=== PATIENT | male | born 1955 | race Caucasian/White ===

== ENCOUNTER 2023-03-14 17:55 | Outpatient (CLI) | payer MEDICARE, MEDICAID | END 2023-03-14 17:56 | disposition critical access hospital (66) | LOC: EMS 17:55 | DX: S01.01XA Laceration without foreign body of scalp, initial encounter (principal); W11.XXXA Fall on and from ladder, initial encounter; Y92.009 Unspecified place in unspecified non-institutional (private) residence as the place of occurrence of the external cause | CPT/HCPCS: A0425; A0429 ==

== ENCOUNTER 2023-03-14 18:08 | Emergency (ER) | payer MEDICARE, MEDICAID ==
--- NOTE | 2023-03-14 18:17 | ED Physician Documentation ---
History of Present Illness - Stated complaint Stated Complaint: FALL - Additonal information Additional information: 68-year-old male presents to the emergency department as a modified trauma. Reportedly late this afternoon he was working on a ladder from about 6 feet up when his foot got trapped and he fell off the ladder directly onto hard pavement. He did strike with his head. Witnesses on scene report that he lost consciousness for about 15 seconds. He subsequently woke up was able to get up on his own and sat in a chair while EMS was summoned. Per bystanders there was no activity to suggest seizure. He presents nonfocal. He does have a large hematoma/abrasion to his posterior occiput. He has a remote history of spinal fusion at the upper lumbar area. He is denying back pain neck pain, hip arm or leg pain. Review of Systems Constitutional: denies: Fever Cardiac: reports: Reviewed and negative Respiratory: reports: Reviewed and negative : reports: Reviewed and negative Skin: reports: Reviewed and negative Musculoskeletal: denies: Neck pain, Back pain, Extremity pain, Joint pain Neurologic: reports: Head injury, LOC. denies: Syncope, Seizure PD PAST MEDICAL HISTORY - Present Medications Home Medications: Ambulatory Orders Medication Instructions Recorded Confirmed HYDROcod/ACETAM 5/325 [Onley 5/325] 1 tablet PO BID PRN #10 tablet 03/14/23 - Allergies Allergies/Adverse Reactions: Allergies Allergy/AdvReac Type Severity Reaction Status Date / Time No Known Drug Allergies Allergy Verified 03/14/23 18:16 PD ED PE EXPANDED - General General: Alert, No acute distress, Other (Rigid cervical collar in place.) - HEENT HEENT: PERRL, Other (Negative for raccoon eyes, regan sign or hemotympanum). No: Head injury (Large hematoma abrasion on the posterior occiput.) - Cardiac Cardiac: Regular Rate, Radial strong equal, Pedal strong equal, Cap refill < 2 sec. No: Murmur Present - Respiratory Respiratory: Clear to ausultation lety. No: Distress, Labored - Abdomen Abdomen: Normal Bowel sounds. No: Tender to palpation - Back Back: No: Vertebral tenderness (No tenderness elicited with palpation of the thoracic or lumbar spine. No abrasions are noted. well healed midline spinal incision), Soft tissue tenderness - Derm Derm: Abrasion (s), Bruising (Posterior occiput) - Neuro Neuro: Alert and Oriented X 3, CNII-XII intact, Normal speech - GCS Eye Opening: Spontaneous Motor: Obeys Commands Verbal: Oriented Total: 15 Results - Vitals Vitals: Vital Signs - 24 hr 03/14/23 18:14 Temperature 36.9 C Heart Rate 71 Respiratory 19 Rate Blood Pressure 155/86 H O2 Saturation 100 Oxygen O2 Source Room air - Labs Labs: Laboratory Tests 03/14/23 03/14/23 03/14/23 18:41 18:41 18:41 WBC 7.5 RBC 4.45 L Hgb 15.2 Hct 43.6 MCV 98.0 H MCH 34.2 H MCHC 34.9 RDW 12.1 Plt Count 149 MPV 10.1 Neut # (Auto) 4.4 Lymph # (Auto) 2.5 [place] # (Auto) 0.4 Eos # (Auto) 0.1 Baso # (Auto) 0.0 Absolute Nucleated RBC 0.00 Nucleated RBC % 0.0 PT 11.2 INR 1.0 Sodium 139 Potassium 3.4 L Chloride 103 Carbon Dioxide 27 Anion Gap 9.0 BUN 10 Creatinine 0.8 Estimated GFR (MDRD) 97 Glucose 95 Calcium 9.1 Total Bilirubin 0.8 AST 32 ALT 41 Alkaline Phosphatase 116 Total Protein 7.4 Albumin 4.3 Globulin 3.1 Albumin/Globulin Ratio 1.4 Lipase 23 - Rads (name of study) cxr Relevant Findings:: Final report received (bilateral low lung volumes presumed atelectasis. No pleural effusion or ptx) CT head Relevant Findings:: Final report received (Right parietal scalp hematoma. No skull fracture. No acute intracranial abnormality. Small area of chronic encephalomalacia in the left frontal lobe.) cervical CT Relevant Findings:: Final report received (No acute cervical spine fracture or subluxation. Mild multilevel spondylosis) CT abd Relevant Findings:: Final report received (Extensive postsurgical changes in the spine without acute hardware complication or acute osseous fracture seen. Mild infiltration of the presacral fat may be secondary to edema versus fat necrosis or possibly a fatty mass.) Procedures - Laceration (location) posterior scalp Length in cm: 1 Wound type: Irregular Wound preparation: Chlorhexadine, Irrigated copiously NS Skin layer closure: Leota (2) Other: Patient tolerated well, No complications, Tetanus booster given PD Medical Decision Making - ED course Complexity details: reviewed results, re-evaluated patient, d/w patient ED course: 68-year-old male was brought to the emergency department after falling off a ladder from a height of about 6 feet directly onto his head and pavement. This was a witnessed fall and bystanders reported about 15 seconds LOC. However once he awoke he was able to get up and ambulate to a chair where he waited until EMS arrived. They placed him in a rigid collar and transported him to the emergency department. On presentation he is alert though mildly disheveled. He had no focal neuro deficits. On exam he reported pain in the head only at the site of the scalp abrasion and hematoma. No pain was elicited with palpation of his cervical, thoracic or lumbar spine. Subsequently a CT of the head cervical spine and abdomen pelvis was obtained. Per radiology interpretations no acute traumatic injuries were noted to include intracranial hemorrhage cervical spine or lumbar spine fractures. There was an incidental finding made in the presacral area of fatty infiltration that could be edema, fat necrosis or even mass. I discussed this finding with the patient and he reported to me that with his previous spinal fusions he had a block of hardware placed in this region that he thinks likely has resulted in the CT imaging findings. He will discuss this with his back surgeon. 1910: I personally remove the cervical collar at the bedside. Patient had no tenderness in his posterior cervical spine and was able to freely range his neck without any pain. Following this the patient was able to ambulate freely without assistance at the bedside. He will be discharged home with usual emergent return precautions discussed for concerns of altered mental status and headache. I am prescribing a short course of short-acting opioid pain medication for this patient. 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 I have discussed that the opioids are for short term therapy only, and will not be refilled from the ED. Departure - Departure Disposition: 01 Home, Self Care Clinical Impression: Fall from ladder Qualifiers: Encounter type: initial encounter Qualified Code(s): W11.XXXA - Fall on and from ladder, initial encounter Scalp hematoma Qualifiers: Encounter type: initial encounter Qualified Code(s): S00.03XA - Contusion of scalp, initial encounter Occipital scalp laceration Qualifiers: Encounter type: initial encounter Qualified Code(s): S01.01XA - Laceration without foreign body of scalp, initial encounter Condition: Stable Record reviewed to determine appropriate education?: Yes Instructions: ED Hematoma, ED Laceration Scalp Stitch Or Stap Prescriptions: HYDROcod/ACETAM 5/325 [Onley 5/325] 1 tablet PO BID PRN #10 tablet PRN Reason: Pain Comments: Leighton gaxiola came to the emergency department today after he fell off the ladder while pressure washing your trailer. You fell directly on your head and you did sustain a scalp hematoma and laceration. 2 jesica were placed in the laceration. These should remain in place for about 7 to 10 days. They can be removed at any urgent care, emergency department or primary care office. You can shower normally. Your tetanus was updated today and is good for 7-[address] of your head and neck did not show any evidence of bruising or bleeding in the brain or fractures of the spine. The CT of your abdomen showed no obvious hardware complications or fractures in the lower lumbar spine. There was note made of some presacral fat that may be related to edema, fat necrosis or even a fatty mass. In discussion with you regarding this you report that you have a history of having hardware and a box removed after your surgery in this region which may be the cause of this finding. I encourage you to discuss this with your spine surgeon to ensure that no further follow-up is warranted or indicated. Over the next several days is important that he stay hydrated. He should not be left alone. If you develop any sudden severe headache, have uncontrolled vomiting, slurred speech, facial droop or sudden weakness in your arms or legs you should return immediately to the emergency department. I am prescribing a short course of narcotic pain medication for you. These are potentially dangerous and addictive medications that should be used carefully. These medications may constipate you. Take an xehm-swq-zyhaame stool softener (docusate) twice daily with plenty of water while taking these medications. If you go 24 hours without a bowel movement, take gteg-plr-vzbdlws miralax, per package instructions. Do not drink or drive while taking these medications. If you received narcotic or sedating medications while in the emergency de partment, do not drive for 24 hours. Store this medication in a safe, secure place and out of reach of children. It is a violation of federal law to give or sell this medication to another person or to use in a manner other than prescribed. The ED will not refill narcotic prescriptions, including prescriptions lost or stolen. To dispose of unwanted medications: 1. [facility] at [address] in [place] has a medication drop box. They accept prescription medications (in pill form) Friday through Friday 9:00 a.m. to 5:00 p.m. 2. The [facility] [employer] accepts prescription medications (in pill form only) for disposal year round. Call for more information. 3. Contact the [facility] for the next [facility] sponsored prescription drug collection event. , [phone], or [phone]; Note that many narcotic pain relievers also contain Tylenol/acetaminophen. Please ensure that your total dose of acetaminophen from all sources does not exceed 3 g (3000 mg) per day.
[2023-03-14] MEDS ORDERED: TETANUS/DIPHTHERIA/PERTUSSIS 0.5 ML SYRINGE IM ONE (18:19)
[2023-03-14] MEDS ORDERED: HYDROmorphone 1 MG/ML CARPUJECT IVP STA (18:39)
[2023-03-14 18:46] LABS: BASOPHILS % (AUTO) 0.3 %; EOSINOPHILS # (AUTO) 0.1 10^3/uL (0.0-0.7); EOSINOPHILS % (AUTO) 1.7 %; HCT - HEMATOCRIT 43.6 % (42.0-52.0); HGB - HEMOGLOBIN 15.2 g/dL (14.0-18.0); LYMPHOCYTES # (AUTO) 2.5 10^3/uL (1.5-3.5); MEAN CORPUSCULAR HEMOGLOBIN 34.2 pg (27.0-31.0); MEAN CORPUSCULAR HGB CONC 34.9 g/dL (32.0-36.0); MEAN PLATELET VOLUME 10.1 fL (7.4-11.4); MONOCYTES # (AUTO) 0.4 10^3/uL (0.0-1.0); MONOCYTES % (AUTO) 5.1 %; NEUTROPHILS # (AUTO) 4.4 10^3/uL (1.5-6.6); NEUTROPHILS % (AUTO) 59.5 %; PLT - PLATELET COUNT 149 10^3/uL (130-450); RED BLOOD COUNT 4.45 10^6/uL (4.70-6.10); RED CELL DISTRIBUTION WIDTH 12.1 % (12.0-15.0); WHITE BLOOD COUNT 7.5 x10^3/uL (4.8-10.8)
[2023-03-14 18:53] LABS: PT - PROTHROMBIN TIME 11.2 secs (9.9-12.6)
[2023-03-14 18:58] LABS: ALBUMIN 4.3 g/dL (3.2-5.5); ALBUMIN/GLOBULIN RATIO 1.4 (1.0-2.2); BILIRUBIN,TOTAL 0.8 mg/dL (0.2-1.0); CALCIUM 9.1 mg/dL (8.5-10.3); CREATININE 0.8 mg/dL (0.6-1.2); POTASSIUM 3.4 mmol/L (3.5-5.0); TOTAL PROTEIN 7.4 g/dL (6.7-8.2)
--- NOTE | 2023-03-14 18:58 | XRAY Report ---
PROCEDURE: Chest 1 View X-Ray INDICATIONS: fall off ladder TECHNIQUE: One view of the chest was acquired. COMPARISON: None. FINDINGS: Surgical changes and devices: Spinal fixation hardware is partially imaged. Lungs and pleura: Bilateral low lung volumes with atelectasis of the lung bases. No pleural effusion or pneumothorax. Mediastinum: Mediastinal contours appear normal. Heart size is normal. Bones and chest wall: No suspicious bony lesions. Overlying soft tissues appear unremarkable. Rem ote prior healed left-sided rib fractures are noted. IMPRESSION: Bilateral low lung volumes with presumed atelectasis of the lung bases. No pleural effusion or pneumo thorax. Reviewed by: Sharath Graff MD on 03/14/2023 6:56 PM PDT Approved by: Sharath Graff MD on 03/14/2023 6:56 PM PDT Station ID: [id number]
--- NOTE | 2023-03-14 19:02 | CT Report ---
PROCEDURE: HEAD WO INDICATIONS: fall off ladder TECHNIQUE: Noncontrast 4.5 mm thick angled axial sections acquired from the foramen magnum to the vertex. For r adiation dose reduction, the following was used: automated exposure control, adjustment of mA and/or kV according to patient size. COMPARISON: None. FINDINGS: Image quality: Excellent. CSF spaces: Basal cisterns are patent. No extra-axial fluid collections. Ventricles are normal in size and shape. Brain: No midline shift. No acute intracranial hemorrhage or mass effect. Small area of chondromalac ia is seen in the left frontal lobe. No focal parenchymal edema. Skull and face: Right parietal scalp hematoma. Calvarium and visualized facial bones are intact, wit hout suspicious lesions. Sinuses: Visualized sinuses and mastoids are clear. IMPRESSION: 1.Right parietal scalp hematoma. No skull fracture. No acute intracranial abnormality. 2.Small area of chronic encephalomalacia in the left frontal lobe. Reviewed by: Sharath Graff MD on 03/14/2023 7:01 PM PDT Approved by: Sharath Graff MD on 03/14/2023 7:01 PM PDT Station ID: [id number]
--- NOTE | 2023-03-14 19:03 | CT Report ---
PROCEDURE: CERVICAL SPINE WO INDICATIONS: fall off ladder TECHNIQUE: Noncontrast 3 mm thick sections acquired from the skull base to the T4 level. Sagittal and coronal r eformats were then constructed. For radiation dose reduction, the following was used: automated exp osure control, adjustment of mA and/or kV according to patient size. COMPARISON: None. FINDINGS: Image quality: Excellent. Bones: No fractures or dislocations. Visualized superior ribs are intact. Mild multilevel degenera tive changes in the spine. Soft tissues: Prevertebral soft tissues are normal in thickness. No paravertebral hematomas. No ap ical pneumothoraces. IMPRESSION: No acute cervical spine fracture or subluxation. Mild multilevel spondylosis. Reviewed by: Sharath Graff MD on 03/14/2023 7:02 PM PDT Approved by: Sharath Graff MD on 03/14/2023 7:02 PM PDT Station ID: [id number]
--- NOTE | 2023-03-14 19:11 | CT Report ---
PROCEDURE: ABDOMEN/PELVIS WO INDICATIONS: fall off ladder; hx of lumbar fusion TECHNIQUE: A CT scan of the abdomen and pelvis was performed without the use of intravenous contrast. Images we re recorded and evaluated at appropriate window settings. Reformats: coronal and sagittal. For radiat ion dose reduction, the following was used: automated exposure control, adjustment of mA and/or kV ac cording to patient size. COMPARISON: None. FINDINGS: Image quality: Excellent. Lung bases and heart: Mild posterior dependent atelectasis. Liver: No solid mass. Gallbladder and biliary tree: No radiopaque stones or wall thickening. No biliary dilation. Spleen: No splenomegaly. Pancreas: No pancreatic ductal dilation. Adrenals: No adrenal nodule. Kidneys and ureters: No hydronephrosis. No renal cystic lesion which requires follow up. No solid mas s. Bowel and peritoneum: No bowel distension. No pathologic free fluid. Prominent stool within the ascen ding and transverse colon. Lymph nodes: No central or retroperitoneal adenopathy. Vessels: No infrarenal aortic aneurysm. PELVIS Reproductive organs: Unremarkable. Bladder: No wall thickness, accounting for underdistention. Pelvic lymph nodes: No pelvic adenopathy by size criteria. Bones: Extensive postsurgical changes are seen in the included thoracic and lumbar spine extending fr om T9 through the sacrum. Metallic hardware appears to be intact. Moderate compression deformity of L 3 is most likely chronic. Healed left-sided rib fractures are noted. Old healed left superior and inf erior pubic rami fractures. Mild infiltration of the presacral fat measuring approximately 5.4 x 4.8 cm on axial images (86/3). Other: Small fat-containing right inguinal hernia. Small fat-containing periumbilical hernia. IMPRESSION: 1.No definite acute posttraumatic findings in the abdomen or pelvis. 2.Mild infiltration of the presacral fat may be secondary to mild edema versus fat necrosis or possib ly a fatty mass. No adjacent sacral fracture is seen. Recommend correlation with any prior studies if available and follow-up pelvic CT or MRI. 3.Extensive postsurgical changes in the spine. No acute hardware complication or acute osseous fractu re is seen. Reviewed by: Sharath Graff MD on 03/14/2023 7:09 PM PDT Approved by: Sharath Graff MD on 03/14/2023 7:09 PM PDT Station ID: [id number]
[2023-03-14] MEDS ORDERED: oxyCODONE 5 MG TABLET PO STA (19:26)
[2023-03-14 19:42] VITALS: BP 124/86
== END 2023-03-14 19:46 | disposition home or self-care (01) ==
LOC: EDUNIT# → ED 18:08
DX: S01.01XA Laceration without foreign body of scalp, initial encounter (principal); W11.XXXA Fall on and from ladder, initial encounter; Z23 Encounter for immunization; Z71.85 Encounter for immunization safety counseling
CPT/HCPCS: 12001; 36415; 70450; 71045; 72125; 74176; 80053; 83690; 85025; 85610; 90471; 90715; 96374; 99284; A9270; J1170